=== PATIENT | male | born 1965 | race Caucasian/White ===

== ENCOUNTER 2023-07-08 22:55 | Emergency (ER) | payer OTHER, SELFPAY ==
[2023-07-08 23:30] VITALS: BP 137/92; PULSE 78; RESP 16; TEMP 36.4; O2SAT 99; BMI 24.1
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
--- NOTE | 2023-07-09 02:48 | PC.NURSE ---
Pt ca&ox4, no signs of distress. pt reports 8/10 neck pain Pt ambulates with a steady gait. plan of care ongoing.
[2023-07-09] MEDS: oxyCODONE HCl Immed Release 5 MG TABLET PO (02:54)
--- NOTE | 2023-07-09 03:00 | PC.NURSE ---
Pt medicated per dec. plan of care ongoing.
[2023-07-09 03:38] VITALS: BP 137/92; PULSE 80; RESP 14; TEMP 36.6; O2SAT 99
== END 2023-07-09 03:41 | disposition home or self-care (01) ==
PROVIDERS: Emergency Provider Internal Medicine
DX: Z04.1 Encounter for examination and observation following transport accident (principal)
CPT/HCPCS: 99283; 99284